=== PATIENT | female | born 1975 | race Caucasian/White ===

== ENCOUNTER 2019-07-04 17:55 | Inpatient (IN) ==
[2019-07-04] MEDS ORDERED: PANTOPRAZOLE 40 MG VIAL IV STA (19:08)
[2019-07-04] MEDS ORDERED: SODIUM CHLORIDE 0.9% 1,000 ML IV STA (19:08)
[2019-07-04] MEDS ORDERED: METOCLOPRAMIDE 10 MG/2 ML VIAL IV STA (19:08)
[2019-07-04] MEDS ORDERED: ONDANSETRON 4 MG/2 ML VIAL IV STA (19:08)
[2019-07-04 20:14] LABS: Basophils # 0.1 10*3/uL (0.0-0.2); Basophils % 0.4 % (0.0-0.8); Eosinophils # 0.1 10*3/uL (0.0-0.87); Eosinophils % 0.4 % (0.00-10.9); Hematocrit 32.2 VOL% (35.7-47.0); Hemoglobin 9.8 GM/DL (12.0-16.0); Immature Granulocytes % 0.4 %; Immature Granulocytes Absolute 0.05 #; Lymphocytes # 1.8 10*3/uL (1.4-4.0); Lymphocytes % 15.8 % (21.3-54.2); Mean Corpuscular HGB Conc 30.4 GM/DL (32-36); Mean Platelet Volume 9.5 FL (9.6-12.0); Monocytes % 4.6 % (1.7-12.7); Neutrophils % 78.4 % (38.7-73.9); Platelet Count 437 T/CUMM (130-400); Red Blood Count 4.35 MC/CUMM (3.8-5.5); Red Cell Distribution Width 16.5 % (9.3-17.3); White Blood Count 11.3 T/CUMM (4-12)
[2019-07-04 20:32] LABS: Apearance,Urine CLEAR (Clear); Bilirubin,Urine Negative (Negative); Blood, Urine Negative (Negative); Glucose,Urine (UA) Negative (Negative); Ketones,Urine Negative (Negative); Nitrite,Urine Negative (Negative); Protein,Urine Negative; RBC,Urine 1 /HPF (0-4); Squamous Epithelial Cell,Urine Occasional /HPF (0-10); Urine Color Yellow (Yellow); Urine Urobilinogen < 2.0 EU/DL (0.2-1.0); WBC,Urine <1 /HPF (0-6)
[2019-07-04 20:37] LABS: Albumin 3.4 G/DL (3.4-5.0); Bilirubin,Total 0.6 MG/DL (0.2-1.0); Calcium 9.4 MG/DL (8.5-10.1); Total Protein 7.8 G/DL (6.4-8.3)
[2019-07-04 21:27] LABS: Hepatitis B Core IgM Quant 0.13 Index; Hepatitis B Surface Ag Quant 0.11 Index; Hepatitis B Surface Ag Result Negative (Negative); Hepatitis C Virus Ab Quant 0.05 Index; Hepatitis C Virus Ab Result Negative (Negative)
[2019-07-04] MEDS ORDERED: MORPHINE 4 MG/1 ML VIAL IV PRN (22:03)
[2019-07-04] MEDS ORDERED: ONDANSETRON 4 MG/2 ML VIAL IV PRN (22:03)
[2019-07-04 22:57] LABS: Risk Ratio 2.5
[2019-07-04] MEDS: SODIUM CHLORIDE 0.9% 1,000 ML IV SCH (23:05)
[2019-07-04] MEDS: FAMOTIDINE 20 MG/2 ML VIAL IV SCH (23:05)
[2019-07-04] MEDS: ENOXAPARIN 40 MG/0.4 ML SYRINGE SUBCUT SCH (23:34)
[2019-07-05 05:41] LABS: Basophils # 0.1 10*3/uL (0.0-0.2); Basophils % 0.6 % (0.0-0.8); Eosinophils # 0.2 10*3/uL (0.0-0.87); Eosinophils % 2.7 % (0.00-10.9); Hematocrit 31.4 VOL% (35.7-47.0); Hemoglobin 9.2 GM/DL (12.0-16.0); Immature Granulocytes % 0.5 %; Immature Granulocytes Absolute 0.04 #; Lymphocytes # 2.2 10*3/uL (1.4-4.0); Lymphocytes % 25.5 % (21.3-54.2); Mean Corpuscular HGB Conc 29.3 GM/DL (32-36); Mean Corpuscular Volume 74.4 FL (87-102); Mean Platelet Volume 9.9 FL (9.6-12.0); Monocytes % 6.1 % (1.7-12.7); Neutrophils % 64.6 % (38.7-73.9); Platelet Count 455 T/CUMM (130-400); Red Blood Count 4.22 MC/CUMM (3.8-5.5); Red Cell Distribution Width 16.7 % (9.3-17.3); White Blood Count 8.8 T/CUMM (4-12)
[2019-07-05 06:01] LABS: % Iron Saturation 8.1 % (18-50); Ferritin 11.1 ng/ml (8-252)
[2019-07-05 06:09] LABS: Bilirubin,Total 0.6 MG/DL (0.2-1.0); Calcium 8.5 MG/DL (8.5-10.1); Osmolality,Calculated 278.3 MOS/KG (273-304); Thyroid Stimulating Hormone 2.84 uIU/ml (0.358-3.74); Total Protein 6.8 G/DL (6.4-8.3)
[2019-07-05 06:11] LABS: Folate 13.9 NG/ML (5.4-24.0); Vitamin B12 477 PG/ML (211-911)
[2019-07-05 07:43] LABS: Sedimentation Rate-Westergren 55 MM/HR (0-20)
[2019-07-05 08:30] LABS: Hemoglobin A1 (Alkaline) 98.4 % (96.5-98.5); Hemoglobin A2 (Alkaline) 1.6 % (1.5-3.5)
[2019-07-05] MEDS: FAMOTIDINE 20 MG/2 ML VIAL IV SCH ×2 (09:30→21:18)
[2019-07-05] MEDS: SODIUM CHLORIDE 0.9% 1,000 ML IV SCH ×2 (09:30→19:05)
[2019-07-05] MEDS: hydroCHLOROthiazide 12.5 MG CAPSULE PO SCH (09:30)
[2019-07-05] MEDS: OLMESARTAN 20 MG TABLET PO SCH (09:30)
[2019-07-05] MEDS: ESCITALOPRAM 10 MG TABLET PO SCH (09:30)
[2019-07-05] MEDS: ursodioL 300 MG CAPSULE PO SCH (21:18)
[2019-07-05] MEDS: ENOXAPARIN 40 MG/0.4 ML SYRINGE SUBCUT SCH (21:27)
[2019-07-06 04:15] LABS: Basophils # 0.1 10*3/uL (0.0-0.2); Basophils % 0.8 % (0.0-0.8); Eosinophils # 0.4 10*3/uL (0.0-0.87); Eosinophils % 4.7 % (0.00-10.9); Immature Granulocytes % 0.4 %; Immature Granulocytes Absolute 0.03 #; Lymphocytes % 25.3 % (21.3-54.2); Mean Corpuscular HGB Conc 28.9 GM/DL (32-36); Mean Corpuscular Volume 76.5 FL (87-102); Mean Platelet Volume 9.6 FL (9.6-12.0); Monocytes % 6.9 % (1.7-12.7); Neutrophils % 61.9 % (38.7-73.9); Platelet Count 445 T/CUMM (130-400); Red Cell Distribution Width 16.9 % (9.3-17.3); White Blood Count 7.7 T/CUMM (4-12)
[2019-07-06] MEDS: SODIUM CHLORIDE 0.9% 1,000 ML IV SCH ×2 (04:36→11:40)
[2019-07-06 04:46] LABS: Hematocrit 32.5 VOL% (35.7-47.0); Hemoglobin 9.6 GM/DL (12.0-16.0)
[2019-07-06 04:59] LABS: Albumin 3.1 G/DL (3.4-5.0); Bilirubin,Total 0.5 MG/DL (0.2-1.0); Calcium 8.6 MG/DL (8.5-10.1); Osmolality,Calculated 280.1 MOS/KG (273-304); Total Protein 7.4 G/DL (6.4-8.3)
[2019-07-06 06:08] LABS: Anisocytosis 1+; Hypochromasia 1+; Microcytosis 1+; Ovalocytes Few; Platelet Estimate Normal; Tear Drop Cells Few
[2019-07-06] MEDS ORDERED: BUPIVACAINE 0.25% /EPI 10 ML VIAL ONE (07:05)
[2019-07-06] MEDS ORDERED: LIDOCAINE MPF 1% /EPI 30 ML VIAL ONE (07:05)
[2019-07-06] MEDS ORDERED: PROMETHAZINE INJ 25 MG in SODIUM CHLORIDE 0.9% 50 ML IV PRN (08:02)
[2019-07-06] MEDS ORDERED: HYDROmorphone 2 MG/1 ML VIAL IV PRN (08:02)
[2019-07-06] MEDS ORDERED: MEPERIDINE 25 MG/1 ML VIAL IV PRN (08:02)
[2019-07-06] MEDS ORDERED: ONDANSETRON 4 MG/2 ML VIAL IV PRN (08:02)
[2019-07-06] MEDS ORDERED: ceFAZolin 1,000 MG VIAL ONE (09:28)
[2019-07-06] MEDS ORDERED: TISSUE ADHESIVE 1 EACH APPLICATOR TOP ONE (10:19)
[2019-07-06] MEDS ORDERED: DEXAMETHASONE 4 MG/1 ML VIAL ONE (10:47)
[2019-07-06] MEDS ORDERED: LIDOCAINE 2% 5 ML VIAL ONE (10:47)
[2019-07-06] MEDS ORDERED: DESFLURANE 1 UNIT/15 MINUTE INH ONE (10:47)
[2019-07-06] MEDS ORDERED: fentaNYL 100 MCG/2 ML VIAL ONE (10:47)
[2019-07-06] MEDS ORDERED: MIDAZOLAM 2 MG/2 ML VIAL ONE (10:47)
[2019-07-06] MEDS ORDERED: ONDANSETRON 4 MG/2 ML VIAL ONE ×2 (10:47→10:57)
[2019-07-06] MEDS ORDERED: propofoL 200 MG/20 ML VIAL IV ONE (10:47)
[2019-07-06] MEDS ORDERED: GLYCOPYRROLATE 0.4 MG/2 ML VIAL ONE (10:47)
[2019-07-06] MEDS ORDERED: PHENYLEPHRINE 1 MG/10 ML SYRINGE IV ONE (10:48)
[2019-07-06] MEDS ORDERED: NEOSTIGMINE 10 MG/10 ML VIAL ONE (10:48)
[2019-07-06] MEDS ORDERED: ROCURONIUM 100 MG/10 ML VIAL IV ONE (10:48)
[2019-07-06] MEDS ORDERED: SUCCINYLCHOLINE 200 MG/10 ML VIAL ONE (10:48)
[2019-07-06] MEDS ORDERED: MEPERIDINE 25 MG/1 ML VIAL ONE (10:57)
[2019-07-06] MEDS ORDERED: PROMETHAZINE 25 MG/1 ML VIAL ONE (10:57)
[2019-07-06] MEDS: hydroCHLOROthiazide 12.5 MG CAPSULE PO SCH (11:28)
[2019-07-06] MEDS: OLMESARTAN 20 MG TABLET PO SCH (11:28)
[2019-07-06] MEDS: FAMOTIDINE 20 MG/2 ML VIAL IV SCH (11:29)
[2019-07-06] MEDS: ESCITALOPRAM 10 MG TABLET PO SCH (11:29)
[2019-07-06] MEDS: ursodioL 300 MG CAPSULE PO SCH (11:29)
[2019-07-06] MEDS ORDERED: PHENOL 1.4% THROAT SPRAY 177 ML BOTTLE PO PRN (15:07)
[2019-07-06 16:38] VITALS: BP 149/90
== END 2019-07-06 18:30 | disposition home or self-care (01) | DRG 418 ==
LOC: N.ED 17:55 → N.EDINP 21:06 → N.3E 21:44
PROVIDERS: ADMIT Internal Medicine; ATTEND Internal Medicine
PROC: LAPCHOL (2019-07-06 09:00)